=== PATIENT | female | born 1960 | race Caucasian/White ===

== ENCOUNTER 2023-01-24 11:48 | Emergency (ER) | payer BC, SELFPAY ==
--- NOTE | ~2023-01-24 | CT_ITS ---
Non-contrast Head CT History: Status post fall Technique: Axial non-contrast imaging of the brain was performed. Dose reduction technique was used on this scan by utilizing automated exposure control and iterative reconstruction technique. The dose -length product (DLP) was 605.33 mGy-cm. Findings: There is no evidence of intracranial hemorrhage, mass lesion, or acute infarct. Brain par enchyma appears normal. The ventricles and subarachnoid spaces are normal in size. The calvarium ap pears normal. The visualized paranasal sinuses and mastoid air cells are clear. Impression: No significant abnormality seen. Reviewed, dictated and finalized at location . Impression: No significant abnormality seen.
--- NOTE | ~2023-01-24 | CT_ITS ---
Noncontrast CT scan of the cervical spine Technique: Multiple contiguous axial [address] images of the cervical spine were obtained and rec onstructed in 2D sagittal and coronal planes on the acquisition scanner. Dose reduction technique was used on this scan by utilizing automated exposure control, adjustment of the mA and/or kV according to patient size. The dose-length product (DLP) was 104.62 mGy-cm. Clinical History: Pain Findings: No fractures or dislocations. There is mild degenerative disc narrowing at C5-C6, with mil d uncovertebral degenerative change at this level. There are scattered mild facet joint degenerative changes in the cervical spine. Frontal mild right neural foraminal narrowing at C3-C4. Probable right neural foraminal narrowing at C5-C6. Probable left neural foraminal narrowing at C6-C7. No preverteb ral soft tissue swelling. Impression: No fracture or subluxation of the cervical spine. Mild degenerative change, as above. Reviewed, dictated and finalized at [facility]. Impression: No fracture or subluxation of the cervical spine. Mild degenerative change, as above.
[2023-01-24 11:51] VITALS: BP 112/59; PULSE 65; RESP 16; TEMP 36.8; O2SAT 100
--- NOTE | 2023-01-24 14:03 | ED.HA ---
HPI - Headache General Chief Complaint: Headache Stated Complaint: headache/fall Time Seen by Provider: 01/24/23 13:15 History of Present Illness HPI Narrative: Patient is a 62-year-old female presenting with a headache. Patient states that she slipped in the shower several days ago and struck her head. States that she does not think that she lost consciousness but she is unsure. Since that time she has had a progressively worsening headache. States that she was at work today and had to put on her sunglasses because she felt so sensitive to the light. Complains of neck soreness as well. No numbness or weakness, vision changes, nausea or vomiting. Denies further complaints or injury. No antiplatelets or anticoagulation. Related Data Allergies Allergy/AdvReac Type Severity Reaction Status Date / Time No Known Allergies Allergy Verified 01/24/23 11:53 Review of Systems Review of Systems: All systems reviewed & are unremarkable except as noted in HPI and below Exam Narrative: GENERAL: Sitting up in bed with sunglasses on, pleasant and cooperative HEAD: Normocephalic, atraumatic. EYES: PERRLA and EOMI. ENT: Nares clear, no rhinorrhea or epistaxis. Mucous membranes moist. NECK: Supple. CHEST: No respiratory distress. HEART: Regular rate and rhythm. ABDOMEN: nondistended EXTREMITIES: Normal range of motion. No edema. SKIN: Warm, dry, no rash. NEURO: No focal deficits. Alert and oriented x3. PSYCH: Normal mood and affect. Course Vital Signs Vital signs: Vital Signs Temperature 98.3 F 01/24/23 11:51 Pulse Rate 65 01/24/23 11:51 Respiratory Rate 16 01/24/23 11:51 Blood Pressure 112/59 L 01/24/23 11:51 Pulse Oximetry 100 01/24/23 11:51 Oxygen Delivery Room Air 01/24/23 11:51 Temperature 98.3 F 01/24/23 11:51 Pulse Rate 68 01/24/23 17:45 Respiratory Rate 15 01/24/23 17:45 Blood Pressure 116/63 01/24/23 17:45 Pulse Oximetry 99 01/24/23 17:45 Oxygen Delivery Room Air 01/24/23 11:51 MDM - Headache MDM Narrative Medical decision making narrative: Patient is a 62-year-old female presenting with headache after a fall several days ago. Vitals within normal limits. Exam remarkable for the above. Plan for CT brain, C-spine, basic labs, fluids, pain control. CT brain and C-spine showed no acute abnormalities. Blood work is unremarkable. On reevaluation, the patient states that her headache is now resolved. Feel she is safe for outpatient management. Advised PCP follow-up. Appropriate concussion care discussed. Strict return precautions given. Patient voiced understanding and is agreeable with plan. Discharged in stable condition. Differential Diagnosis Differential diagnosis: Likely migraine, headache and postconcussion syndrome Medical Records Attestation: I reviewed the patient's medical records. Lab Data Attestation: I reviewed the patient's lab results. 01/24/23 14:25 01/24/23 14:25 Labs: Lab Results 01/24/23 Range/Units 14:25 WBC 4.6 (4.5-10.0) K/mm3 RBC 3.96 L (4.2-5.4) M/mm3 Hgb 12.2 (12.0-15.0) g/dL Hct 36.9 L (37.0-47.0) % MCV 93.2 (80-100) fl MCH 30.8 (26-34) pg MCHC 33.1 (32-36) g/dl RDW 12.2 (11.5-14.5) % Plt Count 150 (150-375) k/mm3 MPV 11.9 H (7.4-10.4) fl Immature Gran % (Auto) 0.4 (0-0.5) % Neut % (Auto) 55.1 (45.5-73.1) % Lymph % (Auto) 32.5 (18.3-44.2) % [place] % (Auto) 9.8 H (2.6-8.5) % Eos % (Auto) 1.5 (0-4.4) % Baso % (Auto) 0.7 (0.2-1.2) % Lymph # (Auto) 1.49 (0.9-3.2) K/mm3 [place] # (Auto) 0.5 (0.1-0.6) K/mm3 Eos # (Auto) 0.1 (0-0.3) K/mm3 Baso # (Auto) 0.0 (0.0-0.1) K/mm3 Abs Immat Gran (auto) 0.02 (0.00-0.031) K/mm3 Absolute Neuts (auto) 2.5 (1.3-6.7) K/mm3 Absolute Nucleated RBC 0.0 (0.0-0.012) K/mm3 Nucleated RBC % 0.0 (0.0-0.2) % % Immature Plt Fraction 12.1 H (0.9-11.2) % Sodium 140 (137-145) mmol/L Potassium 3.9 (3
[2023-01-24] MEDS: MORPHINE SULFATE (*CRX) 4 MG/ML INJ IV PUSH (14:14)
[2023-01-24] MEDS: diphenhydrAMINE HCl INJ 50 MG/ML VIAL 25 MG IV PUSH (14:14)
[2023-01-24] MEDS: PROCHLORPERAZINE EDISYLATE 10 MG/2 ML VIAL IV PUSH (14:27)
[2023-01-24] MEDS: SODIUM CHLORIDE 0.9% IV 1,000 ML 999 ML IV CONT (14:27)
[2023-01-24 14:32] LABS: Basophils Percent Auto 0.7 % (0.2-1.2); Eosinophils Absolute Auto 0.1 K/mm3 (0-0.3); Eosinophils Percent Auto 1.5 % (0-4.4); Hematocrit 36.9 % (37.0-47.0); Hemoglobin 12.2 g/dL (12.0-15.0); Immature Granulocyte Absolute 0.02 K/mm3 (0.00-0.031); Immature Granulocyte Percent A 0.4 % (0-0.5); Immature Platelet Fraction Pct 12.1 % (0.9-11.2); Lymphocytes Absolute Auto 1.49 K/mm3 (0.9-3.2); Lymphocytes Percent Auto 32.5 % (18.3-44.2); Mean Corpuscular HGB Conc 33.1 g/dl (32-36); Mean Corpuscular Hemoglobin 30.8 pg (26-34); Mean Corpuscular Volume 93.2 fl (80-100); Mean Platelet Volume 11.9 fl (7.4-10.4); Monocytes Absolute Auto 0.5 K/mm3 (0.1-0.6); Monocytes Percent Auto 9.8 % (2.6-8.5); Neutrophils Absolute Auto 2.5 K/mm3 (1.3-6.7); Neutrophils Percent Auto 55.1 % (45.5-73.1); Platelet Count Result 150 k/mm3 (150-375); Red Blood Count 3.96 M/mm3 (4.2-5.4); Red Cell Distribution Width 12.2 % (11.5-14.5); White Blood Count 4.6 K/mm3 (4.5-10.0)
[2023-01-24 14:42] LABS: Anion Gap 5 mmol/L (8-16); Blood Urea Nitrogen 15 mg/dL (7-17); Calcium 8.7 mg/dL (8.4-10.2); Carbon Dioxide 31 mmol/L (22-30); Chloride 104 mmol/L (98-107); Estimated CRCL calculation 74 ml/min; Estimated Glomerular Filt Rate > 60; Glucose 98 mg/dL (65-110); Potassium 3.9 mmol/L (3.4-5.0); Sodium 140 mmol/L (137-145)
[2023-01-24 17:45] VITALS: BP 116/63; PULSE 68; RESP 15; O2SAT 99
== END 2023-01-24 17:46 | disposition home or self-care (01) ==
PROVIDERS: Emergency Provider Emergency Medicine
DX: R51.9 Headache, unspecified (principal)
CPT/HCPCS: 36415; 70450; 72125; 80048; 85025; 85055; 96361; 96374; 96375; 99284; J0780; J1200; J2270; J7030